=== PATIENT | male | born 1960 | race Caucasian/White ===

== ENCOUNTER 2020-07-16 14:29 | Outpatient (CLI) | payer BC ==
--- NOTE | 2020-07-16 15:38 | ULT ---
EXAM: RIGHT LOWER EXTREMITY VENOUS DUPLEX ULTRASOUND INCLUDING COLOR AND SPECTRAL DOPPLER IMAGIN07/16/20 HISTORY: Right lower extremity swelling. FINDINGS: There is evidence for intraluminal thrombus with obstruction in the region of the popliteal vein, raul dence for deep venous thrombosis. The visualized greater saphenous, common femoral, superficial femor al, profunda femoral, and posterior tibial veins appear patent. 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 Dr. Mccoy's office in [place] could not be reached despite numerous attempts. I discussed with the patient the findings of the popliteal deep venous thrombosis and the potential r isks and he is willing to be taken over to the [facility] across the street. I discuss ed with Dr. Henrry Dyer in the Emergency Room that the patient was going to be taken over there s hortly. POS: JARETH
== END 2020-07-16 14:30 | disposition home or self-care (01) ==
LOC: BICULT 14:29
PROVIDERS: ATTEND Family Medicine
DX: M79.89 Other specified soft tissue disorders (principal); I82.431 Acute embolism and thrombosis of right popliteal vein

== ENCOUNTER 2020-07-16 15:27 | Emergency (ER) | payer BC ==
[2020-07-16] MEDS ORDERED: Apixaban 5 MG TAB PO SCH (16:45)
== END 2020-07-16 17:11 | disposition home or self-care (01) ==
LOC: ERS 15:27
DX: I82.401 Acute embolism and thrombosis of unspecified deep veins of right lower extremity (principal); I10 Essential (primary) hypertension; Z79.899 Other long term (current) drug therapy
CPT/HCPCS: 99283